=== PATIENT | female | born 1950 | race American Indian/Alaskan Native ===

== ENCOUNTER 2018-06-24 04:15 | Emergency (ER) | payer MEDICARE ==
[2018-06-24 04:59] LABS: Hematocrit 37.3 % (30.3-42.9); Hemoglobin 12.7 gm/dl (10.1-14.3); Mean Corpuscular HGB Conc 34 % (30-34); Mean Corpuscular Volume 91 fl (79-97); Platelet Count 185 K/mm3 (140-440); Red Blood Count 4.09 M/mm3 (3.65-5.03); Red Cell Distribution Width 13.5 % (13.2-15.2)
[2018-06-24 05:11] LABS: Bilirubin,Urine NEG (Negative); Blood,Urine MOD (Negative); Calcium Oxalate Crystals,Urine 2+; Color,Urine Yellow (Yellow); Mucus,Urine 3+ /HPF; Protein,Urine <15 mg/dL mg/dL (Negative); Urobilinogen,Urine < 2.0 mg/dL (<2.0)
[2018-06-24 05:19] LABS: Alanine Aminotransferase 16 units/L (7-56); BUN/Creatinine Ratio 26; Blood Urea Nitrogen 13 mg/dL (7-17); Calcium 8.9 mg/dL (8.4-10.2); Hemolysis Index 9
[2018-06-24 06:19] LABS: Basophils % (Manual) 0 % (0.0-1.8); Platelet Estimate Consistent w Auto; RBC Morphology Normal; Total Cells Counted 100
[2018-06-24] MEDS ORDERED: NACL 0.9% 1000 ML 1,000 ML IV ONE (07:37)
--- NOTE | 2018-06-24 07:40 | Emergency Department Report ---
Vomiting/Diarrhea - HPI Chief Complaint: Nausea/Vomiting/Diarrhea Stated Complaint: DIARRHEA Duration: one week Severity: moderate Nausea/Vomiting Severity: None Diarrhea Severity: Severe Pain Location: Generalized Pain Severity: Moderate Symptoms: Yes Watery Diarrhea, Yes Fever, Yes Able to Tolerate Fluids, No Bloody diarrhea, No Recent Unusual Foods, No Recent Untreated Water, No Recent use of Antibiotics, No Family w/ Similar Symptoms, No Contacts w/ Similar Symptoms, No Rash, No Hematuria, No Recent URI Symptoms Other History: Is a 68-year-old female presents with diarrhea and ab dominal pain for one week. Patient states symptoms initially started which she'll use and fever. She started taking cold and flu medication with no improvement of symptoms. A few days later she started having watery diarrhea and stomach while lying like water for one week. She is currently taking Pepto- Bismol and Zantac with no improvement of symptoms. She denies recent travel, cough, chest pain, lightheadedness, nausea or vomiting. ED Review of Systems ROS: Stated complaint: DIARRHEA Other details as noted in HPI Constitutional: chills, fever ENT: denies: ear pain, throat pain Respiratory: denies: cough, shortness of breath, wheezing Cardiovascular: denies: chest pain, palpitations Gastrointestinal: abdominal pain, diarrhea. denies: nausea Genitourinary: denies: urgency, dysuria, discharge Musculoskeletal: denies: back pain Skin: denies: rash, lesions Neurological: denies: headache, weakness, paresthesias Psychiatric: denies: anxiety, depression ED Past Medical Hx - Past Medical History Previous Medical History?: No - Surgical History Past Surgical History?: No - Social History Smoking Status: Never Smoker Substance Use Type: None - Medications Home Medications: Home Medications Medication Instructions Recorded Confirmed Last Taken Type Loperamide HCl [Imodium A-D] 2 mg PO DAILY PRN #14 capsule 06/24/18 Unknown Rx Vomiting Diarrhea Exam - Exam General: Vital signs noted. No distress. Alert and acting appropriately. HEENT: Yes Moist Mucous Membranes, Yes Rhinorrhea (turbinates mildly congested with clear discharge), No Pharyngeal Erythema, No Pharyngeal Exudates, No Conjuctival Injection, No Frontal Tenderness, No Maxillary Tenderness Neck: No Adenopathy, No Rigidity Lungs: Yes Clear Lung Sounds, Yes Good Air Exchange, No Wheezes, No Stridor, No Cough, No Nasal Flaring, No Retractions, No Use of Accessory Muscles Heart exam: Regular: Yes, Murmur: No, Tachycardia: No Abdomen: Tenderness: Yes (left lower quadrant and right upper quadrant), Peritoneal Signs: No, Distention: No, Hyperactive Bowel sounds: Yes Skin exam: Rash: No, Edema: No, Normal turgor: Yes Neurologic: Alert and oriented, no deficits. Musculoskeletal: Unremarkable. ED Medical Decision Making - Lab Data Result diagrams: 06/24/18 04:42 06/24/18 04:42 Lab Results 06/24/18 06/24/18 06/24/18 Range/Units 04:42 04:42 05:00 WBC 2.3 L (4.5-11.0) K/mm3 RBC 4.09 (3.65-5.03) M/mm3 Hgb 12.7 (10.1-14.3) gm/dl Hct 37.3 (30.3-42.9) % MCV 91 (79-97) fl MCH 31 (28-32) pg MCHC 34 (30-34) % RDW 13.5 (13.2-15.2) % Plt Count 185 (140-440) K/mm3 Add Manual Diff Complete Total Counted 100 Seg Neutrophils % Tare Man Seg Neuts % (Manual) 40.0 (40.0-70.0) % Band Neutrophils % 0 % Lymphocytes % (Manual) 52.0 H (13.4-35.0) % Reactive Lymphs % (Man) 1.0 % Monocytes % (Manual) 6.0 (0.0-7.3) % Eosinophils % (Manual) 1.0 (0.0-4.3) % Basophils % (Manual) 0 (0.0-1.8) % Metamyelocytes % 0 % Myelocytes % 0 % Promyelocytes % 0 % Blast Cells % 0 % Nucleated RBC % Not Reportable Seg Neutrophils # Man 0.9 L (1.8-7.7) K/mm3 Band Neutrophils # 0.0 K/mm3 Lymphocytes # (Manual) 1.2 (1.2-5.4) K/mm3 Abs React Lymphs (Man) 0.0 K/mm3 Monocytes # (Manual) 0.1 (0.0-0.8) K/mm3 Eosinophils # (Manual) 0.0 (0.0-0.4) K/mm3 Basophils # (Manual) 0.0 (0.0-0.1) K/mm3 Metamyelocytes # 0.0 K/mm3 Myelocytes # 0.0 K/mm3 Promyelocytes # 0.0 K/mm3 Blast Cells # 0.0 K/mm3 WBC Morphology Not Reportable Hypersegmented Neuts Not Reportable Hyposegmented Neuts Not Reportable Hypogranular Neuts Not Reportable Smudge Cells Not Reportable Toxic Granulation Not Reportable Toxic Vacuolation Not Reportable Dohle Bodies Not Reportable Pelger-Huet Anomaly Not Reportable Margie Rods Not Reportable Platelet Estimate Consistent w auto Clumped Platelets Not Reportable Plt Clumps, EDTA Not Reportable Large Platelets Not Reportable Giant Platelets Not Reportable Platelet Satelliting Not Reportable Plt Morphology Comment Not Reportable RBC Morphology Normal Dimorphic RBCs Not Reportable Polychromasia Not Reportable Hypochromasia Not Reportable Poikilocytosis Not Reportable Anisocytosis Not Reportable Microcytosis Not Reportable Macrocytosis Not Reportable Spherocytes Not Reportable Pappenheimer Bodies Not Reportable Sickle Cells Not Reportable Target Cells Not Reportable Tear Drop Cells Not Reportable Ovalocytes Not Reportable Helmet Cells Not Reportable [place] Bodies Not Reportable [place] Rings Not Reportable [place] Cells Not Reportable Bite Cells Not Reportable Crenated Cell Not Reportable Elliptocytes Not Reportable Acanthocytes (Spur) Not Reportable Rouleaux Not Reportable Hemoglobin C Crystals Not Reportable Schistocytes Not Reportable Malaria parasites Not Reportable Jaleel Bodies Not Reportable Hem Pathologist Commnt No Sodium 141 (137-145) mmol/L Potassium 3.4 L (3.6-5.0) mmol/L Chloride 104.1 (98-107) mmol/L Carbon Dioxide 23 (22-30) mmol/L Anion Gap 17 mmol/L BUN 13 (7-17) mg/dL Creatinine 0.5 L (0.7-1.2) mg/dL Estimated GFR > 60 ml/min BUN/Creatinine Ratio 26 % Glucose 84 (65-100) mg/dL Calcium 8.9 (8.4-10.2) mg/dL Total Bilirubin 0.40 (0.1-1.2) mg/dL AST 28 (5-40) units/L ALT 16 (7-56) units/L Alkaline Phosphatase 62 (35-129) units/L Total Protein 7.2 (6.3-8.2) g/dL Albumin 4.0 (3.9-5) g/dL Albumin/Globulin Ratio 1.3 % Urine Color Yellow (Yellow) Urine Turbidity Cloudy (Clear) Urine pH 5.0 (5.0-7.0) Ur Specific [place] 1.020 (1.003-1.030) Urine Protein <15 mg/dl (Negative) mg/dL Urine Glucose (UA) Neg (Negative) mg/dL Urine Ketones 20 (Negative) mg/dL Urine Blood Mod (Negative) Urine Nitrite Neg (Negative) Urine Bilirubin Neg (Negative) Urine Urobilinogen < 2.0 (<2.0) mg/dL Ur Leukocyte Esterase Neg (Negative) Urine WBC (Auto) 3.0 (0.0-6.0) /HPF Urine RBC (Auto) 10.0 (0.0-6.0) /HPF U Epithel Cells (Auto) 1.0 (0-13.0) /HPF Calcium Oxalate Crystal 2+ Urine Mucus 3+ /HPF - Radiology Data Radiology results: report reviewed CT ABDOMEN PELVIS WITH CONTRAST: HISTORY: Right upper quadrant tenderness, left lower quadrant tenderness. COMPARISON: none. TECHNIQUE: Helical CT in 1.25mm intervals following IV contrast. Sagittal and coronal reconstructions. FINDINGS: Lung bases: Normal. Liver: Mild diffuse fatty infiltration. No enlargement, surface nodularity or suspicious mass. Biliary system: Normal. Pancreas: Normal. Spleen: Normal. Kidneys/ureters/bladder: Normal. Adrenal glands: Normal. Aorta: Normal. Intestines: No oral contrast was administered. There is no evidence for bowel obstruction or focal inflammation. There is a mild degree of fluid in the colon. Gastroenteritis could be considered. Appendix: Normal. Pelvic viscera: Normal. Ascites: None. Adenopathy: None. Musculoskeletal: Borderline osteopenia. Mild degenerative changes in the thoracolumbar spine. IMPRESSION: No acute process is identified in the abdomen or pelvis. Mild fatty infiltration of the liver. - Medical Decision Making This is a 68 y.o. female that presents with diarrhea and abdominal pain for one week. Patient is stable and was examined by me. Vitals stable. Obtained CMP, CBC, UA & CT of abdomen. Hypokalemia, given klor-con 40 mEq once. All other labs unremarkable. No acute process is identified in the abdomen or pelvis. Mild fatty infiltration of the liver. Given normal saline 1L IV once in ER. Start imdium for gastritis. Increase fluid intake. Discussed plan with patient and daughter who agreed to plan. No further questions noted by the patient. Discharged home in stable condition. Follow up with PCP in 2-3 days. Critical care attestation.: If time is entered above; I have spent that time in minutes in the direct care of this critically ill patient, excluding procedure time. ED Disposition Clinical Impression: Gastroenteritis Diarrhea Qualifiers: Diarrhea type: functional diarrhea Qualified Code(s): K59.1 - Functional diarrhea Abdominal pain Qualifiers: Abdominal location: generalized Qualified Code(s): R10.84 - Generalized abdominal pain Disposition: TO HOME OR SELFCARE Is pt being admited?: No Does the pt Need Aspirin: No Condition: Stable Instructions: Gastroenteritis (ED), Acute Diarrhea (ED) Additional Instructions: Frequent hand washing is important to reduce spread. Prompt disinfection of contaminated surfaces with household chlorine bleach- based powertrain engineer and washing of soiled clothing and bedding should be advised. If food or water is thought to be contaminated, it should be avoided. Increase fluid intake. Drinks high in sugars such as carbonated soft drinks, fruit juice, and highly sugared liquids should be avoided. Prescriptions: Loperamide HCl [Imodium A-D] 2 mg PO DAILY PRN #14 capsule PRN Reason: Diarrhea Referrals: SANTOS WHEELER MD [Primary Care Provider] - 3-5 Days [facility] [Outside] - 3-5 Days [facility] [Outside] - 3-5 Days JOCELYNE CANDELARIO MD [Staff Physician] - 3-5 Days Forms: Accompanied Note Time of Disposition: 09:49
[2018-06-24] MEDS ORDERED: PEPCID IV ONE (07:41)
--- NOTE | 2018-06-24 09:15 | Cat Scan Report ---
CT ABDOMEN PELVIS WITH CONTRAST: HISTORY: Right upper quadrant tenderness, left lower quadrant tenderness. COMPARISON: none. TECHNIQUE: Helical CT in 1.25mm intervals following IV contrast. Sagittal and coronal reconstructions. FINDINGS: Lung bases: Normal. Liver: Mild diffuse fatty infiltration. No enlargement, surface nodularity or suspicious mass. Biliary system: Normal. Pancreas: Normal. Spleen: Normal. Kidneys/ureters/bladder: Normal. Adrenal glands: Normal. Aorta: Normal. Intestines: No oral contrast was administered. There is no evidence for bowel obstruction or focal inflammation. There is a mild degree of fluid in the colon. Gastroenteritis could be considered. Appendix: Normal. Pelvic viscera: Normal. Ascites: None. Adenopathy: None. Musculoskeletal: Borderline osteopenia. Mild degenerative changes in the thoracolumbar spine. IMPRESSION: No acute process is identified in the abdomen or pelvis. Mild fatty infiltration of the liver.
[2018-06-24] MEDS ORDERED: K-DUR PO ONE (09:43)
== END 2018-06-24 10:03 | disposition home or self-care (01) ==
LOC: ED 04:15
DX: K52.9 Noninfective gastroenteritis and colitis, unspecified (principal)
CPT/HCPCS: 36415; 74177; 80053; 81001; 85007; 85025; 96361; 96374; 99284; J7030; Q9967

== ENCOUNTER 2018-07-09 21:24 | Emergency (ER) | payer MEDICARE ==
[2018-07-09] MEDS ORDERED: DECADRON IV ONE (21:50)
[2018-07-09] MEDS ORDERED: PEPCID PO ONE (21:50)
[2018-07-09] MEDS ORDERED: BENADRYL IM ONE (21:50)
--- NOTE | 2018-07-09 21:52 | Emergency Department Report ---
Blank Doc - Documentation Documentation: 68-year-old [place] female presents to the emergency room for rashes started on . Patient reports that the rash has gotten worse and it itches. Patient reports that the rash started on the right side of her chest but rash is worse on her lower extremities and buttocks. Patient denies any shortness of breathing denies any new medications no new detergents or new foods.
--- NOTE | 2018-07-10 00:51 | Emergency Department Report ---
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, chooses to use her a dult daughter who is present at bedside which is reasonable, Onset/Timin -: days(s) Location: back, abdomen, upper extremity, lower extremity Severity scale (0 -10): 0 Quality: other (itching) Consistency: intermittent Improves with: none Worsens with: other (hot shower) Associated Symptoms: rash Treatments Prior to Arrival: none - Related Data Previous Rx's Medication Instructions Recorded Last Taken Type Loperamide HCl [Imodium A-D] 2 mg PO DAILY PRN #14 capsule 06/24/18 Unknown Rx EPINEPHrine [Epipen 2-Yunior] 0.3 mg IJ PRN PRN #1 auto.injct 07/10/18 Unknown Rx Famotidine [Pepcid] 20 mg PO BID PRN 7 Days #14 tablet 07/10/18 Unknown Rx Triamcinolone Aceton 0.1% (Nf) 1 applic TP BID 14 Days #1 tube 07/10/18 Unknown Rx [Kenalog (NF)] diphenhydrAMINE [Benadryl CAP] 25 mg PO Q6HR PRN 7 Days #28 07/10/18 Unknown Rx capsule predniSONE [Deltasone] 40 mg PO QDAY 5 Days #10 tab 07/10/18 Unknown Rx Allergies Allergy/AdvReac Type Severity Reaction Status Date / Time No Known Allergies Allergy Unverified 06/24/18 04:19 ED Review of Systems ROS: Stated complaint: RAPID HEARTBEAT/BODY RASH Other details as noted in HPI Constitutional: denies: chills, fever Eyes: denies: eye pain, eye discharge, vision change ENT: denies: ear pain, throat pain Respiratory: denies: cough, shortness of breath, wheezing Cardiovascular: palpitations Endocrine: no symptoms reported Gastrointestinal: denies: abdominal pain, nausea, diarrhea Genitourinary: denies: urgency, dysuria, discharge Musculoskeletal: denies: back pain, joint swelling, arthralgia Skin: rash. denies: lesions Neurological: denies: headache, weakness, paresthesias Psychiatric: denies: anxiety, depression Hematological/Lymphatic: as per HPI ED Past Medical Hx - Past Medical History Previous Medical History?: No - Surgical History Past Surgical History?: No - Social History Smoking Status: Never Smoker Substance Use Type: None - Medications Home Medications: Home Medications Medication Instructions Recorded Confirmed Last Taken Type Loperamide HCl [Imodium A-D] 2 mg PO DAILY PRN #14 capsule 06/24/18 Unknown Rx EPINEPHrine [Epipen 2-Yunior] 0.3 mg IJ PRN PRN #1 auto.injct 07/10/18 Unknown Rx Famotidine [Pepcid] 20 mg PO BID PRN 7 Days #14 tablet 07/10/18 Unknown Rx Triamcinolone Aceton 0.1% (Nf) 1 applic TP BID 14 Days #1 tube 07/10/18 Unknown Rx [Kenalog (NF)] diphenhydrAMINE [Benadryl CAP] 25 mg PO Q6HR PRN 7 Days #28 07/10/18 Unknown Rx capsule predniSONE [Deltasone] 40 mg PO QDAY 5 Days #10 tab 07/10/18 Unknown Rx ED Physical Exam - General Limitations: No Limitations General appearance: alert, in no apparent distress - Head Head exam: Present: atraumatic, normocephalic - Eye Eye exam: Present: normal appearance, EOMI Pupils: Present: normal accommodation - ENT ENT exam: Present: normal orophraynx, mucous membranes moist, TM's normal bilaterally, normal external ear exam - Neck Neck exam: Present: normal inspection, full ROM. Absent: tenderness, men ingismus, lymphadenopathy, thyromegaly - Respiratory Respiratory exam: Present: normal lung sounds bilaterally. Absent: respiratory distress, wheezes, stridor, chest wall tenderness, prolonged expiratory - Cardiovascular Cardiovascular Exam: Present: regular rate, normal rhythm, normal heart sounds. Absent: systolic murmur, diastolic murmur, rubs, gallop - GI/Abdominal GI/Abdominal exam: Present: soft, normal bowel sounds. Absent: distended, tenderness, guarding, rebound, rigid, bruit, hernia - Rectal Rectal exam: Present: deferred - Extremities Exam Extremities exam: Present: normal inspection, full ROM, normal capillary refill. Absent: tenderness - Back Exam Back exam: Present: normal inspection, full ROM, rash noted. Absent: tenderness, CVA tenderness (R), CVA tenderness (L), muscle spasm - Neurological Exam Neurological exam: Present: alert, CN II-XII intact, normal gait, reflexes normal. Absent: motor sensory deficit - Psychiatric Psychiatric exam: Present: normal affect, normal mood, anxious - Skin Skin exam: Present: warm, dry, intact (whether), rash (red raised smooth no weeping no fever ,some hives, no open lesions ), erythema, urticaria ED Course Vital Signs 07/09/18 21:40 Temperature 98.9 F Pulse Rate 83 Respiratory 18 Rate Blood Pressure 149/59 ED Medical Decision Making - EKG Data EKG shows normal: sinus rhythm, axis, intervals, QRS complexes, ST-T waves Rate: normal - Medical Decision Making This is a contact dermatitis versus dermatitis , symptoms are improving with medications given in ED plan DC'd home with prednisone and Benadryl Pepcid triamcinolone ointment and EpiPen patient will follow up with PCP in 2-3 days patient will return to ED should symptoms worsen EKG was noted normal sinus rhythm no ST elevated [place] no ectopy and no hives at this time the lungs are clear there is no respiratory distress respirations are even and nonlabored patient appears well and nontoxic tolerate by mouth patient DC'd to home with daughter at this time Dilantin patient verbalizes understanding of discharge instructions Critical care attestation.: If time is entered above; I have spent that time in minutes in the direct care of this critically ill patient, excluding procedure time. ED Disposition Clinical Impression: Allergic reaction Qualifiers: Encounter type: initial encounter Qualified Code(s): T78.40XA - Allergy, unspecified, initial encounter Contact dermatitis Qualifiers: Contact dermatitis type: allergic Contact dermatitis trigger: other trigger Qualified Code(s): L23.89 - Allergic contact dermatitis due to other agents; L23.8 - Allergic contact dermatitis due to other agents Disposition: DC-01 TO HOME OR SELFCARE Is pt being admited?: No Does the pt Need Aspirin: No Condition: Stable Instructions: Allergies (ED), Urticaria (ED) Prescriptions: diphenhydrAMINE [Benadryl CAP] 25 mg PO Q6HR PRN 7 Days #28 capsule PRN Reason: allergies predniSONE [Deltasone] 40 mg PO QDAY 5 Days #10 tab EPINEPHrine [Epipen 2-Yunior] 0.3 mg IJ PRN PRN #1 auto.injct PRN Reason: allergies Triamcinolone Aceton 0.1% (Nf) [Kenalog (NF)] 1 applic TP BID 14 Days #1 tube Famotidine [Pepcid] 20 mg PO BID PRN 7 Days #14 tablet PRN Reason: allergies Referrals: RJ PEREZ MD [Staff Physician] - 3-5 Days Forms: Work/School Release Form(ED) Time of Disposition: 00:54
[2018-07-10 01:12] VITALS: BP 138/78
== END 2018-07-10 01:14 | disposition home or self-care (01) ==
LOC: ED 21:24
DX: L23.9 Allergic contact dermatitis, unspecified cause (principal)
CPT/HCPCS: 93005; 93010; 96372; 96374; 99283; J1100; J1200